=== PATIENT | female | born 1975 | race Caucasian/White ===

== ENCOUNTER → 2016-09-28 | Outpatient (CLI) | payer OTHER ==
[~2016-09-28] MED LIST: BENTYL20 MG PO; BIRTH CONTROL1 EAC1 PO; BUSPAR10 MG PO; CARVEDILOL3.125 MG PO; DARVOCET N 1001 TAB PO; DAYPRO600 M1 PO; LEVOTHYROXIN0.025 MG PO; MOTRIN800 MG PO; PENICILLIN VK500 MG PO; SINGULAIR10 MG PO; TOBRADEX 0.1%-0.5 ML OPH; TRAMADOL HCL50 MG PO; TRAMADOL50 MG PO; VICODIN ES 7501 TAB PO; ZANTAC150 MG PO; [UNRECOGNIZED DRUG - REMARK]
[2016-09-28 19:37] LABS: HEMOGLOBIN A1c 6.3 % (4.8-5.6)
== END | disposition home or self-care (01) ==
LOC: LAB 17:59
PROVIDERS: Family Medicine
DX: Z00.01 Encounter for general adult medical examination with abnormal findings (principal); E03.9 Hypothyroidism, unspecified; E66.01 Morbid (severe) obesity due to excess calories; R79.89 Other specified abnormal findings of blood chemistry; Z85.42 Personal history of malignant neoplasm of other parts of uterus; Z85.43 Personal history of malignant neoplasm of ovary

== ENCOUNTER → 2017-01-12 | Outpatient (CLI) | payer OTHER | END | disposition home or self-care (01) | LOC: LAB 13:45 | DX: Z85.43 Personal history of malignant neoplasm of ovary (principal); Z85.42 Personal history of malignant neoplasm of other parts of uterus ==

== ENCOUNTER → 2017-01-15 | Outpatient (CLI) | payer OTHER | END | disposition home or self-care (01) | LOC: CT 04:47 | DX: K43.9 Ventral hernia without obstruction or gangrene (principal); Z85.43 Personal history of malignant neoplasm of ovary; Z85.42 Personal history of malignant neoplasm of other parts of uterus; Z90.49 Acquired absence of other specified parts of digestive tract; Z90.710 Acquired absence of both cervix and uterus ==

== ENCOUNTER 2017-04-28 09:57 | Emergency (ER) | payer OTHER ==
[~2017-04-28] VITALS: Wt 139.7 kg
[~2017-04-28 09:57] MED LIST changes: -LEVOTHYROXIN0.025 MG PO; +LEVOXYL112 MCG PO
[2017-04-28] MEDS ORDERED: LEVOXYL112 MCG PO (10:12)
[2017-04-28 10:24] LABS: BASO % 0.5 % (0.0-1.0); EOS # 0.2 10*3/uL (0.0-0.4); EOS % 2.2 % (1.0-4.0); HEMATOCRIT 44.1 % (37.0-47.0); HEMOGLOBIN 13.8 g/dl (12.0-16.0); LYMPH # 2.8 10*3/uL (1.3-4.4); LYMPH % 34.6 % (27.0-41.0); MEAN CORPUSCULAR HGB 28.2 pg (27.0-31.0); MEAN CORPUSCULAR HGB CONC 31.3 g/dl (33.0-37.0); MONO # 0.6 10*3/uL (0.1-1.0); MONO % 6.8 % (3.0-9.0); NEUT # 4.6 10*3/uL (2.3-7.9); NEUT % 55.7 % (47.0-73.0); PLATELET COUNT AUTOMATED 165 10*3/uL (130-400); RED CELL DISTRI WIDTH 14.2 % (0-14.5); WHITE BLOOD COUNT 8.2 10*3/uL (4.8-10.8)
[2017-04-28 10:41] LABS: ALBUMIN 3.9 gm/dl (3.1-4.5); ALKALINE PHOSPHATASE 113 U/L (45-117); BUN 22 mg/dl (7-24); CHLORIDE 102 mmol/L (98-107); CREATININE 0.93 mg/dL (0.55-1.02); SGOT/AST 16 IU/L (3-35); SGPT/ALT 26 U/L (12-78); SODIUM 138 mmol/L (136-145)
[2017-04-28 10:43] LABS: TROPONIN I < 0.015 ng/ml (<0.045)
== END 2017-04-28 11:22 | disposition home or self-care (01) ==
LOC: ED 09:57
PROVIDERS: Student in an Organized Health Care Education/Training Program
DX: R00.2 Palpitations (principal); Z88.1 Allergy status to other antibiotic agents; Z88.6 Allergy status to analgesic agent; Z79.899 Other long term (current) drug therapy

== ENCOUNTER → 2017-05-27 | Outpatient (CLI) | payer OTHER ==
--- NOTE | ~2017-05-27 | HM ---
[place], [place] HOLTER MONITOR REPORT NAME: LIZANDRO NAVARRO UNIT #: [id number] ROOM: DOCTOR: CEM BENITEZ [facility],MELONIE BIRTHDATE: [birth year] DOS: 05/27/2017 HOLTER MONITOR REPORT The patient has a palpitations. Basic rhythm is sinus. Borderline sinus bradycardic rate of 50. Frequent PACs. Sinus arrhythmia. No extreme tachycardia. No extreme bradycardia noted. No conduction abnormalities and ventricular ectopy as described. This may be the cause for the symptoms, otherwise Holter monitor appears to be fairly benign. MELONIE PRIEST MD CM:HOLTER:HOLTER MONITOR REPORT [id number] MELONIE PRIEST MD [facility]
[2017-05-27 12:17] LABS: THYROID STIM HORMONE (HS) 2.49 uIU/ml (0.358-4.75)
== END | disposition home or self-care (01) ==
LOC: CARD 05-25 09:30 → LAB 10:46 → CARD 11:30
PROVIDERS: Registered Nurse Flight
DX: Z13.220 Encounter for screening for lipoid disorders (principal); I49.9 Cardiac arrhythmia, unspecified; E03.9 Hypothyroidism, unspecified; R73.09 Other abnormal glucose

== ENCOUNTER 2017-11-03 04:00 | Emergency (ER) | payer OTHER ==
[~2017-11-03] VITALS: Ht 167.6 cm; Wt 139.7 kg
[2017-11-03] MEDS ORDERED: NORCO 5-325 TA1 EACH PO (05:06)
[2017-11-03] MEDS ORDERED: Motrin,Rufen800 MG PO (05:06)
[2018-01-10] MEDS ORDERED: VITAMIN D33000 UNIT PO (13:15)
[2018-01-10] MEDS ORDERED: MULTI-VITAMIN1 EACH PO (13:15)
[2018-01-12] MEDS ORDERED: NORCO 5-325 TA1 EACH PO (08:08)
== END 2017-11-03 05:27 | disposition home or self-care (01) ==
LOC: ED 04:00
DX: M23.91 Unspecified internal derangement of right knee (principal); Z88.1 Allergy status to other antibiotic agents; Z88.5 Allergy status to narcotic agent; Z79.899 Other long term (current) drug therapy; Z90.49 Acquired absence of other specified parts of digestive tract; Z90.710 Acquired absence of both cervix and uterus

== ENCOUNTER → 2018-02-06 | Outpatient (CLI) | payer OTHER ==
[~2018-02-06] MED LIST changes: +MULTI-VITAMIN1 EACH PO; +Motrin,Rufen800 MG PO; +NORCO 5-325 TA1 EACH PO; +VITAMIN D33000 UNIT PO
== END | disposition home or self-care (01) ==
LOC: LAB 14:10
DX: Z85.43 Personal history of malignant neoplasm of ovary (principal); Z85.42 Personal history of malignant neoplasm of other parts of uterus

== ENCOUNTER 2018-07-27 16:53 | Emergency (ER) | payer OTHER ==
[~2018-07-27] VITALS: Ht 167.6 cm; Wt 146.5 kg
[2018-07-27] MEDS ORDERED: MELOXICAM15 MG PO (17:13)
== END 2018-07-27 20:33 | disposition home or self-care (01) ==
LOC: ED 16:53
DX: S86.911A Strain of unspecified muscle(s) and tendon(s) at lower leg level, right leg, initial encounter (principal); Z79.899 Other long term (current) drug therapy; Z88.1 Allergy status to other antibiotic agents; Z88.8 Allergy status to other drugs, medicaments and biological substances; Z88.6 Allergy status to analgesic agent; W22.8XXA Striking against or struck by other objects, initial encounter; Y93.89 Activity, other specified; Y92.89 Other specified places as the place of occurrence of the external cause; Y99.8 Other external cause status

== ENCOUNTER 2020-04-22 17:02 | Emergency (ER) | payer OTHER ==
[~2020-04-22] VITALS: Ht 167.6 cm; Wt 147.4 kg
[~2020-04-22 17:02] MED LIST changes: +MELOXICAM15 MG PO
[2020-04-22] MEDS ORDERED: PREDNISONE10 M1 PO (19:49)
== END 2020-04-22 19:57 | disposition home or self-care (01) ==
LOC: ED 17:02
DX: L50.0 Allergic urticaria (principal); E07.9 Disorder of thyroid, unspecified; Z88.5 Allergy status to narcotic agent; Z88.1 Allergy status to other antibiotic agents; Z91.041 Radiographic dye allergy status; Z79.899 Other long term (current) drug therapy; Z90.49 Acquired absence of other specified parts of digestive tract; Z98.890 Other specified postprocedural states; Z90.711 Acquired absence of uterus with remaining cervical stump; Z85.43 Personal history of malignant neoplasm of ovary

== ENCOUNTER → 2020-05-14 | Outpatient (CLI) | payer OTHER ==
[~2020-05-14] MED LIST changes: +KENALOG 0.025%15 GM T; +PREDNISONE10 M1 PO; +PREDNISONE20 M1 PO
[2020-05-14 12:59] LABS: BASO # 0.1 10*3/uL (0.0-0.1); BASO % 0.7 % (0.0-1.0); EOS # 0.3 10*3/uL (0.0-0.4); EOS % 3.3 % (1.0-4.0); HEMATOCRIT 45.1 % (37.0-47.0); LYMPH # 1.9 10*3/uL (1.3-4.4); LYMPH % 24.7 % (27.0-41.0); MEAN CELL VOLUME 90.7 fl (81.0-99.0); MEAN CORPUSCULAR HGB 27.8 pg (27.0-31.0); MEAN CORPUSCULAR HGB CONC 30.6 g/dl (33.0-37.0); MEAN PLATELET VOLUME 11.3 fl (9.6-12.3); MONO # 0.4 10*3/uL (0.1-1.0); MONO % 5.4 % (3.0-9.0); NEUT % 65.8 % (47.0-73.0); PLATELET COUNT AUTOMATED 155 10*3/uL (130-400); RED BLOOD COUNT 4.97 10*6/uL (4.10-5.10); RED CELL DISTRI WIDTH 14.2 % (0-14.5); WHITE BLOOD COUNT 7.6 10*3/uL (4.8-10.8)
[2020-05-14 13:24] LABS: ALBUMIN 3.1 gm/dl (3.1-4.5); BUN 10 mg/dl (7-24); CHLORIDE 103 mmol/L (98-107); CHOLESTEROL 196 mg/dL (<200); CREATININE 0.95 mg/dL (0.55-1.02); POTASSIUM 4.2 mmol/L (3.5-5.1); SGOT/AST 32 IU/L (3-35); SGPT/ALT 46 U/L (12-78); SODIUM 137 mmol/L (136-145); TOTAL PROTEIN 7.1 gm/dL (6.4-8.2); TRIGLYCERIDES 134 mg/dl (<150); VLDL CHOLESTEROL 27 mg/dL (6-40)
[2020-05-14 13:31] LABS: ALKALINE PHOSPHATASE 111 U/L (45-117); FREE T4 1.36 ng/dl (0.76-1.46); HDL CHOLESTEROL 38 mg/dl (40-60); LDL CHOLESTEROL 131 mg/dL (9-159)
== END | disposition home or self-care (01) ==
LOC: LAB 12:29
PROVIDERS: ATTEND Nurse Practitioner Family
DX: E11.8 Type 2 diabetes mellitus with unspecified complications (principal); M13.0 Polyarthritis, unspecified; R53.82 Chronic fatigue, unspecified; Z68.42 Body mass index [BMI] 45.0-49.9, adult; E03.9 Hypothyroidism, unspecified

== ENCOUNTER 2020-06-01 14:27 | Emergency (ER) | payer OTHER ==
[~2020-06-01] VITALS: Wt 113.4 kg
[~2020-06-01 14:27] MED LIST changes: -KENALOG 0.025%15 GM T; -PREDNISONE20 M1 PO
[2020-06-01] MEDS ORDERED: KENALOG 0.025%15 GM T (15:00)
[2020-06-01] MEDS ORDERED: PREDNISONE20 M1 PO (15:00)
== END 2020-06-01 15:15 | disposition home or self-care (01) ==
LOC: ED 14:27
DX: R21 Rash and other nonspecific skin eruption (principal); E11.9 Type 2 diabetes mellitus without complications; Z88.1 Allergy status to other antibiotic agents; Z91.041 Radiographic dye allergy status; Z88.8 Allergy status to other drugs, medicaments and biological substances; Z88.5 Allergy status to narcotic agent; Z79.899 Other long term (current) drug therapy; Z90.49 Acquired absence of other specified parts of digestive tract; Z98.890 Other specified postprocedural states; Z90.711 Acquired absence of uterus with remaining cervical stump

== ENCOUNTER 2023-09-05 06:40 | Emergency (ER) | payer BC ==
[~2023-09-05] VITALS: Ht 167.6 cm; Wt 142.9 kg
[~2023-09-05 06:40] MED LIST changes: +KENALOG 0.025%15 GM T; +PREDNISONE20 M1 PO
[2023-09-05] MEDS ORDERED: JANUVIA50 MG PO (06:52)
[2023-09-05] MEDS ORDERED: CITALOPRAM10 MG PO (06:52)
[2023-09-05] MEDS ORDERED: GLIPIZIDE5 MG PO (06:53)
[2023-09-05] MEDS ORDERED: Ketorolac Tromethamine 30 MG/ML VIAL IM ONE (07:15)
[2023-09-05] MEDS ORDERED: METHOCARBAMOL 500 MG TAB PO ONE (09:05)
[2023-09-05] MEDS ORDERED: NAPROSYN500 MG PO (09:09)
[2023-09-05] MEDS ORDERED: METHOCARBAMOL750 M1 PO (09:09)
== END 2023-09-05 10:30 | disposition home or self-care (01) ==
LOC: ED 06:40
DX: S39.012A Strain of muscle, fascia and tendon of lower back, initial encounter (principal); E11.9 Type 2 diabetes mellitus without complications; Z88.1 Allergy status to other antibiotic agents; Z91.041 Radiographic dye allergy status; Z88.5 Allergy status to narcotic agent; Z88.8 Allergy status to other drugs, medicaments and biological substances; Z90.49 Acquired absence of other specified parts of digestive tract; Z90.710 Acquired absence of both cervix and uterus; Z98.890 Other specified postprocedural states; X50.1XXA Overexertion from prolonged static or awkward postures, initial encounter; Y93.89 Activity, other specified; Y92.009 Unspecified place in unspecified non-institutional (private) residence as the place of occurrence of the external cause; Y99.8 Other external cause status